=== PATIENT | male | born 1950 | race Caucasian/White ===

== ENCOUNTER 2019-05-27 11:57 | Day surgery (SDC) | payer MEDICARE, BC ==
[~2019-05-27] VITALS: Ht 167.6 cm; Wt 67.2 kg
[2019-05-27] MEDS ORDERED: SIMV20TA3 PO (12:37)
[2019-05-27] MEDS ORDERED: SERT25TA3 PO (12:37)
[2019-05-27] MEDS ORDERED: ISOS30TA8 PO (12:37)
[2019-05-27] MEDS ORDERED: ASPI-650 PO (12:37)
[2019-05-27] MEDS ORDERED: METO25TA35 PO (12:37)
[2019-05-27] MEDS ORDERED: CLON0.5T PO (12:37)
[2019-05-27] MEDS ORDERED: SODIUM CHLORIDE 0.9% 1,000 ML IV SCH ×2 (12:58→15:33)
[2019-05-27 13:04] VITALS: BP 97/60
[2019-05-27] MEDS ORDERED: MIDAZOLAM 1 MG/ML, 2ML ONE ×2 (14:12→14:50)
[2019-05-27] MEDS ORDERED: VERAPAMIL 2.5 MG/ML, 2ML ONE (14:12)
[2019-05-27] MEDS ORDERED: FENTANYL PF 100 MCG/2ML ONE (14:12)
[2019-05-27] MEDS ORDERED: HEPARIN 1,000 UNITS/ML, 10ML ONE (14:12)
[2019-05-27] MEDS ORDERED: LIDOCAINE-MPF 1%, 5ML ONE (14:12)
[2019-05-27] MEDS ORDERED: BIVALIRUDIN 250 MG ONE (14:41)
== END 2019-05-27 16:41 | disposition home or self-care (01) ==
LOC: CACL 11:57
PROVIDERS: ATTEND Internal Medicine Cardiovascular Disease
DX: I25.10 Atherosclerotic heart disease of native coronary artery without angina pectoris (principal); I10 Essential (primary) hypertension; E78.5 Hyperlipidemia, unspecified; F19.90 Other psychoactive substance use, unspecified, uncomplicated; Z95.1 Presence of aortocoronary bypass graft; Z79.82 Long term (current) use of aspirin; Z88.8 Allergy status to other drugs, medicaments and biological substances; Z87.891 Personal history of nicotine dependence
CPT/HCPCS: 93459; 99156; 99157; C1769; C1894; J1644; J2250; J3010; Q9967; J0583